=== PATIENT | male | born 1930 | race Caucasian/White ===

== ENCOUNTER 2018-05-12 11:33 | Emergency (ER) | payer OTHER ==
[~2018-05-12] VITALS: Ht 162.6 cm; Wt 56.7 kg
[~2018-05-12 11:33] MED LIST: COZAAR100 MG; COZAAR25 MG; FOSAMAX10 MG; LIPITOR20 MG; PREVACID30 MG; TOPROL XL25 MG
[2018-05-12] MEDS ORDERED: AVAPRO75 MG PO (11:59)
[2018-05-12] MEDS ORDERED: QVAR8.7 G1 IH (12:00)
== END 2018-05-12 13:46 | disposition home or self-care (01) ==
LOC: ER 11:33
DX: S80.211A Abrasion, right knee, initial encounter (principal); S40.011A Contusion of right shoulder, initial encounter; W18.09XA Striking against other object with subsequent fall, initial encounter; Y93.89 Activity, other specified; Y92.512 Supermarket, store or market as the place of occurrence of the external cause; Y99.8 Other external cause status

== ENCOUNTER 2019-06-09 07:33 | Outpatient (CLI) | payer OTHER ==
[~2019-06-09 07:33] MED LIST changes: +AVAPRO75 MG PO; +QVAR8.7 G1 IH
== END 2019-06-09 07:35 | disposition home or self-care (01) ==
LOC: RAD 07:33 → EDBD 07:33 → RAD 07:35
DX: Z98.41 Cataract extraction status, right eye (principal); H25.011 Cortical age-related cataract, right eye